=== PATIENT | female | born 1955 | race Caucasian/White ===

== ENCOUNTER → 2022-03-17 12:54 | Outpatient (CLI) | payer MEDICARE, SELFPAY ==
--- NOTE | 2022-03-17 13:00 | DI.RAD_ITS ---
Exam(s) XR THORACIC SPINE COMPLETE EXAM: XR THORACIC SPINE COMPLETE CLINICAL HISTORY: sturck by horse back pain. TECHNIQUE: 2D digital imaging was performed. COMPARISON: No exams were available for comparison FINDINGS: 3 views There is generalized osteopenia. There is mild loss of height of a lower thoracic vertebral body, ag e indeterminate. This is either T11 or T12. No other vertebral body height loss. There is advanced disc space narrowing at T11-T12, more so on t he right than left side and there is a mild scoliosis at and below this level. No osseous lesions. IMPRESSION: Lower thoracic vertebral findings as described above. If clinically indicated follow-up MRI can be p erformed. DATA REPOSITORY: RADIATION DOSE DELIVERED:
--- NOTE | 2022-03-17 13:00 | DI.RAD_ITS ---
Exam(s) XR LUMBAR SPINE COMPLETE EXAM: XR LUMBAR SPINE COMPLETE CLINICAL HISTORY: fall struck by horse, mid and lower back. TECHNIQUE: 2D digital imaging was performed. COMPARISON: No exams were available for comparison FINDINGS: Five views There is chronic degenerative scoliosis convex right. No evidence of acute fracture. Multilevel mil d degenerative listhesis ease related to facet arthropathy. There is multilevel disc space narrowing . Sacroiliac joints unremarkable. IMPRESSION: Chronic degenerative changes. No obvious acute fracture. DATA REPOSITORY: RADIATION DOSE DELIVERED:
--- NOTE | 2022-03-17 14:11 | DI.VRAD_ITS ---
PROCEDURE INFORMATION: Exam: XR Lumbosacral Spine Exam date and time: 03/17/2022 1:23 PM Age: 67 years old Clinical indication: Other: Lbp; Low back pain; Patient HX: Fall, struck by horse. TECHNIQUE: Imaging protocol: XR of the lumbosacral spine. Views: 4 or 5 views. COMPARISON: No relevant prior studies available. FINDINGS: Bones/joints: The bones are diffusely demineralized. This limits sensitivity for detection of acute nondisplaced fractures. No fractures are identified with certainty. Vertebral bodies maintain normal height. There is grade 1 retrolisthesis of L3 on L4 and grade 1 anterolisthesis of L4 on L5. There is multilevel loss of intervertebral disc height, degenerative endplate spurring and facet hypertrophy throughout the lumbar spine. There is a mild lumbar dextroscoliosis. Soft tissues: Unremarkable. IMPRESSION: No acute posttraumatic abnormality in the lumbar spine. Chronic changes as described above. Dictated and Authenticated by: Daisy Adkins MD. Ordering:JENNIFER Low MD
--- NOTE | 2022-03-17 14:13 | DI.VRAD_ITS ---
PROCEDURE INFORMATION: Exam: XR Thoracic Spine Exam date and time: 03/17/2022 1:23 PM Age: 67 years old Clinical indication: Pain in thoracic spine; Without myelpathy or radiculopathy TECHNIQUE: Imaging protocol: XR of the thoracic spine. Views: 3 views. COMPARISON: CR XR LUMBAR SPINE COMPLETE 03/17/2022 1:23 PM FINDINGS: Bones/joints: The bones are diffusely demineralized, which limits sensitivity for detection of acute nondisplaced fractures. There is mild loss of height of a lower thoracic vertebral body, likely T12, age-indeterminate. Other vertebral bodies maintain normal height. There is no spondylolisthesis. Thoracic kyphosis is maintained. Soft tissues: Paraspinal soft tissues are unremarkable. IMPRESSION: Osteopenia with age-indeterminate loss of height of the T12 vertebral body. This could be acute or chronic. Consider further evaluation with MRI as clinically warranted. Dictated and Authenticated by: Daisy Adkins MD. Ordering:JENNIFER Low MD
== END ==
PROVIDERS: PCP Physician Assistant Medical; Visit Provider Physician Assistant
DX: M85.88 Other specified disorders of bone density and structure, other site; M51.34 Other intervertebral disc degeneration, thoracic region; M47.816 Spondylosis without myelopathy or radiculopathy, lumbar region; M51.36 Other intervertebral disc degeneration, lumbar region
CPT/HCPCS: 72072; 72110

== ENCOUNTER → 2022-07-13 23:04 | Outpatient (CLI) | payer MEDICARE, SELFPAY ==
--- NOTE | 2022-07-13 13:47 | DI.RAD_ITS ---
Exam(s) XR CHEST 2V PA LATERAL EXAM: XR CHEST 2V PA LATERAL CLINICAL HISTORY: evaluate pneumonia - chronic cough R05.9 TECHNIQUE: COMPARISON: No exams were available for comparison FINDINGS: Heart is not enlarged. Lungs are predominantly clear with a few of probable small linear scars. No focal consolidation. No pleural effusion. IMPRESSION: No evidence of acute process. RADIATION DOSE DELIVERED: Total DLP
== END ==
PROVIDERS: PCP Physician Assistant Medical; Visit Provider Nurse Practitioner Family
DX: R05.9 Cough, unspecified (principal)
CPT/HCPCS: 71046

== ENCOUNTER 2022-11-29 13:35 | Outpatient (REF) | payer MEDICARE, SELFPAY ==
[2022-11-29 19:29] LABS: Influenza A PCR Negative (Negative); Influenza B PCR Negative (Negative); RSV PCR Negative (Negative)
[2022-11-29 20:15] LABS: COVID-19 PCR Positive (Negative); Source Nasopharynx
== END 2022-11-29 13:36 | disposition home or self-care (01) ==
LOC: LBN 13:35
PROVIDERS: PCP Student in an Organized Health Care Education/Training Program; Referring Provider Student in an Organized Health Care Education/Training Program; Visit Provider Student in an Organized Health Care Education/Training Program
DX: R05.9 Cough, unspecified (principal); R06.9 Unspecified abnormalities of breathing
CPT/HCPCS: 87637

== ENCOUNTER 2023-03-08 01:22 | Outpatient (CLI) | payer MEDICARE, SELFPAY ==
[2023-03-08 10:43] LABS: BUN 14 mg/dL (7-18); CREATININE 0.9 mg/dL (0.55-1.02); Calcium 8.8 mg/dL (8.5-10.1); Calculated LDL 144 mg/dL (<100); Chloride 106 mmol/L (98-107); Cholesterol 241 mg/dL (<200); Glucose 96 mg/dL (74-106); HDL Cholesterol 83 mg/dL (40-60); Potassium 4.2 mmol/L (3.5-5.1); Sodium 141 mmol/L (136-145); Triglyceride 72 mg/dL (<150)
== END 2023-03-08 01:23 | disposition home or self-care (01) ==
LOC: LBO 01:22
PROVIDERS: PCP Student in an Organized Health Care Education/Training Program; Referring Provider Student in an Organized Health Care Education/Training Program; Visit Provider Student in an Organized Health Care Education/Training Program
DX: R79.89 Other specified abnormal findings of blood chemistry (principal)
CPT/HCPCS: 36415; 80048; 80061

== ENCOUNTER 2023-03-25 05:05 | Outpatient (CLI) | payer MEDICARE, SELFPAY ==
[2023-03-25] MEDS: Methacholine 100 MG VIAL IH (14:14)
[2023-03-25] MEDS: Albuterol HFA 18 GM 200 PUFF INH IH (14:14)
[2023-03-25] MEDS: Inhaler, Assist Device 1 EACH MC (14:15)
--- NOTE | 2023-03-29 12:45 | PFT_ITS ---
Date of service: 03/25/23 Time of Service: 10:01 Pulmonary Function Test Result Indications: Chronic Cough Interpretation Spirometry: There is no airflow limitation. There was a 23% decrease in FEV1% with administ ration of 4mg/mL methacholine. Lung Volumes: Normal lung volumes. Diffusion Capacity: Normal diffusion. Airway Pressure: Normal airways resistance. Impression Normal baseline pulmonary function with a positive methacholine challenge test. Clinical Correlation therefore is recommended.
== END 2023-03-25 05:06 | disposition home or self-care (01) ==
LOC: RT 05:06
PROVIDERS: PCP Student in an Organized Health Care Education/Training Program; Visit Provider Physician Assistant Surgical
DX: R05.9 Cough, unspecified (principal)
CPT/HCPCS: 94060; 94070; 94726; 94729; 94010; J7674

== ENCOUNTER 2023-05-02 07:23 | Emergency (ER) | payer MEDICARE, SELFPAY ==
[2023-05-02] VITALS (19 sets, daily range): BP systolic 123–184; BP diastolic 89–109; PULSE 68–81; RESP 9–23; TEMP 36.4; O2SAT 93–100
--- NOTE | 2023-05-02 07:15 | RT.EKG_ITS ---
APPROVED REPORT Exam: Resting ECG Reason for Exam: generally unwell Patient Location: E HR:66 bpm ECG Measurements Heart Rate 66 AXIS FL 149 P 34 QRSd 87 QRS 29 QT 389 T 52 QTc 408 Conclusion Sinus rhythm...normal P axis, V-rate 60- 99 Narrow complex normal sinus rhythm at a rate of 66. Normal axis. Intervals within normal limits. N o T wave inversions. No ST segment abnormalities. No prior for comparison. No acute injury pattern .
--- NOTE | 2023-05-02 07:32 | ED.PROG_ITS ---
Date of service: 05/02/23 Time of Service: 07:32 Medical Decision Making This patient arrived at the end of my shift with chest pain that had resolved. She reported that she woke up at 3 AM from pain that she described as stabbing sharp and quickly resolving. She has not noticed any rash to her chest. She carranza s a history of hyperlipidemia but not diabetes nor hypertension. She does not smoke. There is no family history of premature coronary artery disease. She was quite well appearing. Her vitals are significant for hypertension but not tachycardic nor hypoxia. I ordered a 2 view chest x-ray troponins, CBC, comprehensive metabolic panel, his asked for a blue top to be drawn. Her ECG was nonischemic. Given her resolved pain her nonischemic ECG and her family history of thoracic aortic aneurysm will defer aspirin at this point in time. Discharge Plan Discharge Details Chief Complaint: Chest Pain Primary Care Provider: Catrachita Luz ED Provider: Provider,Temporary Home Meds and New Rx's Prescriptions: No Action lorazepam 0.5 mg tablet 0.5 mg PO DAILY MDD 1mg PRN (Reason: anxiety, panic episode) Qty: 20 2RF Rx Instructions: Continue, with 2nd tab prn heightened/severe panic episode guaifenesin 600 mg tablet extended release 12hr 600 mg PO Q12H PRN (Reason: congestion) Qty: 20 0RF levalbuterol tartrate 45 mcg/actuation HFA aerosol inhaler 2 inh inhalation Q6H Qty: 15 12RF budesonide-formoterol [Symbicort] 160-4.5 mcg/actuation HFA aerosol inhaler 2 puff inhalation BID Qty: 10.2 11RF cholecalciferol (vitamin D3) 25 mcg (1,000 unit) capsule 25 mcg PO DAILY Methyl-Guard Plus PO DAILY cannabidiol 100 mg/mL solution PO DAILY Rx Instructions: CBD Oral Oil acetaminophen 500 mg capsule 1,000 mg PO Q6H PRN ibuprofen 200 mg capsule 400 mg PO Q4H PRN latanoprost 0.005 % drops 1 drp ophthalmic (eye) DAILY gabapentin 100 mg capsule 300 mg PO QHS Qty: 90 1RF Rx Instructions: Trial with (1) capsule x 1 week, then may slowly increase/monitor.
[2023-05-02 07:50] LABS: Abs Immature Grans 0.02 10^3/uL (0.0-0.06); Absolute Basophil Count 0.04 10^3/uL (0.0-0.2); Absolute Eosinophil Count 0.09 10^3/uL (0.0-0.7); Absolute Lymphocyte Count 1.46 10^3/uL (1.2-3.4); Absolute Monocyte Count 0.37 10^3/uL (0.1-0.8); Absolute Neutrophil Count 3.64 10^3/uL (1.2-6.7); Basophils % 0.7; Eosinophils % 1.6; HCT 42.2 % (36.0-46.0); HGB 14.4 g/dL (11.2-15.7); Immature Grans % 0.4; MCH 30.3 pg (27.0-33.0); MCHC 34.1 % (32.0-36.0); MCV 89 fL (80-95); Monocytes % 6.6; Neutrophils % 64.7; Platelet Count 303 10^3/uL (130-400); RBC 4.75 10^6/uL (3.93-5.22); RDW-SD 39.7 fL; WBC 5.62 10^3/uL (4.4-10.8)
[2023-05-02 08:10] LABS: ALT 25 U/L (14-59); AST 22 U/L (15-37); Albumin 3.9 g/dL (3.4-5.0); Alkaline Phosphatase 69 U/L (46-116); Anion Gap 7.9 mmol/L (3-11); BUN 19 mg/dL (7-18); Bilirubin, Total 0.8 mg/dL (0.2-1.0); CO2 26.1 mmol/L (21.0-32.0); CREATININE 0.9 mg/dL (0.55-1.02); Calcium 9.1 mg/dL (8.5-10.1); Chloride 108 mmol/L (98-107); Glucose 99 mg/dL (74-106); Lipase 52 U/L (16-77); Potassium 3.8 mmol/L (3.5-5.1); Sodium 142 mmol/L (136-145); Troponin I < 50 ng/L (<or=60)
[2023-05-02 08:12] LABS: INR 1.1 (0.9-1.1); Prothrombin Time 11.1 sec (9.3-11.0)
--- NOTE | 2023-05-02 08:15 | DI.CT_ITS ---
Exam(s) CT THORAX CTA EXAM: CT THORAX CTA CLINICAL HISTORY: pleuritic left chest pain; fam hx aortic aneurysm. TECHNIQUE: Imaging Protocol: Axial CT angiography was performed with multi-slice acquisition and mu lti-planar and/or 3D reconstructions. CONTRAST MATERIAL: Intravenous: Omnipaque 350 contrast volume:100 mL COMPARISON: CR XR CHEST 2V PA LATERAL from 07/13/2022 FINDINGS: Tracheobronchial tree: Patent where visualized. Pulmonary parenchyma: There is poor inspiration with areas of atelectasis predominantly in the depend ent portions of the lungs. No focal consolidating infiltrates are seen. No architectural distortion . Pulmonary Arteries: No evidence of filling defect to suggest pulmonary emboli. Mediastinum and Kylee: No dominant adenopathy or fluid collection. The esophagus is unremarkable. Visualized thyroid gland: Unremarkable. Pleura: No effusion or pneumothorax. Heart: The heart is not dilated. Mild coronary artery calcification. No pericardial effusion. Aorta: Thoracic aorta non-dilated. No evidence of dissection. Mild atherosclerosis. Upper abdomen: There is an incidental 7 mm cyst in the liver. No follow-up is recommended. Soft tissues: Unremarkable. Bones: Within normal limits for the patient's age.There is an old T11 compression deformity. IMPRESSION: 1. No evidence of pulmonary embolism, thoracic aortic dissection or aneurysm. 2. Findings were discussed with the emergency department at 9:20 a.m. on 05/02/2023. RADIATION DOSE DELIVERED: Total DLP Total DLP DATA REPOSITORY: All CT scans at this facility are submitted to the National Radiology Data Registry (NRDR) Dose Index Registry (DIR) with the [employer] (ACR). RADIATION OPTIMIZATION: All CT scans at this facility use at least one of these dose optimization te chniques: automated exposure control; mA and/or kV adjustment per patient size (includes targeted exa ms where dose is matched to clinical indication); or iterative reconstruction.
--- NOTE | 2023-05-02 08:17 | W.ED.GENAD ---
Discharge Plan Disposition Patient Disposition: Home Condition: Improving Discharge Details Chief Complaint: Chest Pain Clinical Impression: Chest pain Primary Care Provider: Catrachita Luz ED Provider: Justin Fonseca Home Meds and New Rx's Prescriptions: No Action lorazepam 0.5 mg tablet 0.5 mg PO DAILY MDD 1mg PRN (Reason: anxiety, panic episode) Qty: 20 2RF Rx Instructions: Continue, with 2nd tab prn heightened/severe panic episode guaifenesin 600 mg tablet extended release 12hr 600 mg PO Q12H PRN (Reason: congestion) Qty: 20 0RF levalbuterol tartrate 45 mcg/actuation HFA aerosol inhaler 2 inh inhalation Q6H Qty: 15 12RF budesonide-formoterol [Symbicort] 160-4.5 mcg/actuation HFA aerosol inhaler 2 puff inhalation BID Qty: 10.2 11RF cholecalciferol (vitamin D3) 25 mcg (1,000 unit) capsule 25 mcg PO DAILY Methyl-Guard Plus PO DAILY cannabidiol 100 mg/mL solution PO DAILY Rx Instructions: CBD Oral Oil acetaminophen 500 mg capsule 1,000 mg PO Q6H PRN ibuprofen 200 mg capsule 400 mg PO Q4H PRN latanoprost 0.005 % drops 1 drp ophthalmic (eye) DAILY gabapentin 100 mg capsule 300 mg PO QHS Qty: 90 1RF Rx Instructions: Trial with (1) capsule x 1 week, then may slowly increase/monitor. Discharge Instructions Instructions: Chest Pain (ED) Additional Instructions: Please follow-up closely with your primary care physician. Please return to the emergency department for any worsening symptoms Medical Decision Making 68-year-old female history of hyperlipidemia, asthma presents with brief sharp left-sided chest discomfort that woke her from sleep around 3 or 4AM this morning, nonradiating, no associated diaphoresis nausea vomiting or shortness of breath; patient endorses resolved symptomatology and is currently resting comfortably. No history of coronary disease or thromboembolic disease. Patient does have a family history of thoracic aortic aneurysm. No recent travel no recent hospitalization. Has had intermittent leg cramping bilaterally without edema. Patient afebrile nontoxic normal heart rate and respirations as well as saturation on room air. Noted to be hypertense on arrival. EKG normal sinus rhythm nonischemic. Lungs clear bilaterally, equal pulses bilateral radial pulses, warm well perfused extremities, no peripheral edema noted. Given brief sharp nature of discomfort in low risk heart score and low risk Wells patient consider costochondritis versus pleurisy versus lower suspicion for pneumothorax versus less likely pneumonia given afebrile state no cough no systemic signs of infection versus must consider atypical ACS versus PE versus aortic pathology given family history and hypertension. Will obtain basic labs, serial troponins, ekg, and given family history of aortic pathology, presentation of chest pain sharp in nature with hypertension will obtain CT chest to assess both aortic contour and PE. Have held aspirin at this time given nature of discomfort history and differential diagnosis, will consider anti-inflammatory post CT imaging. Disposition pending results imaging and reassessment 10: 37 patient resting comfortably asymptomatic no acute distress. First set of labs unremarkable, normal troponin, CT chest negative for PE or aortic pathology. Have added Toradol and GI cocktail to treat potential costochondritis pleurisy and/or GERD/reflux. Pending stable examination and repeat troponin will likely discharge home with close follow-up. 12: 20 patient resting comfortably asymptomatic. 2 troponin negative. Hemodynamically stable. Patient to follow with primary care physician. Home care instructions and return precautions given HPI General Date/Time Provider Initiated Documentation: 05/02/23 07:32. HPI Narrative: 68-year-old female history of asthma, hyperlipidemia presents with acute onset left-sided sharp chest pain brief in nature that awoke her from sleep around 4 AM this morning no associated diaphoresis nausea vomiting or shortness of breath. No history of thromboembolic disease or cardiovascular disease. Patient does have a family history of thoracic aortic aneurysm. No recent travel no recent hospitalization. Patient has had some leg cramping bilaterally without swelling. Currently asymptomatic Related Data Home Medications Medication Instructions Recorded Confirmed Methyl-Guard Plus cap PO DAILY 10/19/22 04/12/23 acetaminophen 500 mg capsule 1,000 mg PO Q6H PRN 10/19/22 05/02/23 cannabidiol 100 mg/mL oral solution PO DAILY 10/19/22 04/12/23 cholecalciferol (vitamin D3) 25 25 mcg PO DAILY 10/19/22 05/02/23 mcg (1,000 unit) capsule ibuprofen 200 mg capsule 400 mg PO Q4H PRN 10/19/22 05/02/23 latanoprost 0.005 % eye drops 1 drp ophthalmic (eye) DAILY 10/19/22 05/02/23 guaifenesin 600 mg tablet, 600 mg PO Q12H PRN congestion #20 02/05/23 05/02/23 extended release 12 hr tabs gabapentin 100 mg capsule 300 mg PO QHS #90 caps 03/28/23 05/02/23 lorazepam 0.5 mg tablet 0.5 mg PO DAILY PRN anxiety, panic 04/10/23 05/02/23 episode #20 tabs levalbuterol tartrate 45 2 inh inhalation Q6H #15 grams 04/12/23 05/02/23 mcg/actuation aerosol inhaler budesonide-formoterol HFA 160 2 puff inhalation BID #10.2 grams 04/15/23 05/02/23 mcg-4.5 mcg/actuation aerosol inhaler (Symbicort) Previous Rx's Medication Instructions Recorded guaifenesin 600 mg tablet, 600 mg PO Q12H PRN congestion #20 02/05/23 extended release 12 hr tabs gabapentin 100 mg capsule 300 mg PO QHS #90 caps 03/28/23 lorazepam 0.5 mg tablet 0.5 mg PO DAILY PRN anxiety, panic 04/10/23 episode #20 tabs levalbuterol tartrate 45 2 inh inhalation Q6H #15 grams 04/12/23 mcg/actuation aerosol inhaler budesonide-formoterol HFA 160 2 puff inhalation BID #10.2 grams 04/15/23 mcg-4.5 mcg/actuation aerosol inhaler (Symbicort) Allergies Allergy/AdvReac Type Severity Reaction Status Date / Time acetaminophen [From Percocet] Allergy Intermediate Nausea Verified 05/02/23 07:28 oxycodone [From Percocet] Allergy Intermediate Nausea Verified 05/02/23 07:28 General Stated Complaint: Chest Pain YOSSI: 3 Review of Systems Narrative: Review of Systems Constitutional: negative Eyes: negative ENT: negative Cardiovascular: Chest pain Respiratory: negative Gastrointestinal: negative : negative Musculoskeletal: negative Skin: negative Neurologic: negative Psych: negative PFSH All Active Problems (Updated 05/02/23 @ 12:21 by Justin Fonseca MD) Chest pain (Acute) Anxiety (Chronic) Asthma (Chronic) Bronchitis (Acute) Smoking hx (Acute) Spondylosis without myelopathy or radiculopathy, lumbar region (Acute ~10/22/22) Thoracic kyphosis (Acute 07/27/22) MRI [facility] Neural foraminal stenosis of lumbar spine (Acute 07/27/22) MRI [facility] Lordosis of lumbar region (Acute 07/27/22) MRI [facility] Compression fracture of T11 vertebra (Acute 07/27/22) MRI [facility] Scoliosis of lumbar spine (Acute 07/27/22) MRI [facility] Cough (Acute) lingering x months .. 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 Surgical History (Updated 09/14/22 @ 09:40 by Carie Peterson) H/O arthroscopic knee surgery History of appendectomy History of delivery (10/14/83) History of hysterectomy (10/14/07) History of laryngoscopy Family History (Updated 09/14/22 @ 08:41 by Carie Peterson) Son Asthma Maternal Grandmother Diabetes Father Stroke Mother Thoracic aneurysm, ruptured Social History (Updated 09/14/22 @ 08:34 by Carie Peterson) Smoking/Tobacco Use Status: Former Tobacco Use tobacco type: cigarettes Tobacco: How many years used: 10 Quit status: quit date established Smoking risk assessment performed?: Yes Alcohol Intake: current Alcohol Intake frequency: 0-2 drinks per day Drug use: Occasionally Substance use type: marijuana Adopted: No Caregiver/Support person: No Foster care: No Household members: spouse Housing: house Number of Children: 2 number of grandchildren: 2 Communication Needs: None Education Level: college Details: bachelor's degree Do you need help understanding health information?: Rarely current occupation: Retired Senior Quality Control Technician Pets and animals: Yes Pets and animals: horse(s) and other Details: mini donkeys Sexually active: Yes Do you think of yourself as: straight/heterosexual Current gender identity: female What is your relationship status?: How often do you talk on the phone with friends or family?: once per week How often do you get together with friends or relatives?: once per week Do you belong to any clubs or organized social groups?: yes Panel score (0-1 are the most socially isolated patients): 2 Leilani/Hoahaoism: Gnosticism Special leilani needs: No Seatbelt use: always Helmet use: Yes Helmet use: always Drive intox or ride w/intox driver messenger: No Do you feel safe at home: Yes Do you feel safe in your relationship?: Yes Exam Narrative Exam Narrative: Physical Examination General: alert, awake, cooperative, resting comfortably, no acute distress HEENT: normocephalic, atraumatic; PERRL, EOM intact, conjunctiva normal; no nasal discharge; moist mucous membranes, oral and pharyngeal mucosa normal, tolerating secretions Neck: supple, trachea midline; full ROM Chest: normal to inspection Respiratory: normal respiratory effort, speaking in full sentences, clear to auscultation, no wheezing, rales or rhonchi Cardiac: regular rate, regular rhythm, S1S2 intact, no murmurs rubs or gallops GI: abdomen soft, non-tender, non-distended; no palpable mass or hepatosplenomegaly Skin: no lesions, rashes or trauma appreciated Neuro: AAOx3, normal speech, moving all extremities Extremities: No peripheral edema Psych: Appropriate mood and affect Course Vital Signs Vital signs: Vital Signs Temperature 36.4 C L 05/02/23 07:21 Pulse 68 05/02/23 07:21 Respiratory Rate 19 05/02/23 07:21 Blood Pressure 184/89 H 05/02/23 07:21 Pulse Oximetry 100 05/02/23 07:21 Temperature 36.4 C L 05/02/23 07:21 Temperature Source Oral 05/02/23 07:21 Pulse 68 05/02/23 07:21 Respiratory Rate 23 05/02/23 07:30 Respiratory Effort Normal 05/02/23 07:30 Respiratory Depth Normal 05/02/23 07:30 Respiratory Pattern Normal 05/02/23 07:30 Blood Pressure 184/89 H 05/02/23 07:21 Blood Pressure Position Supine 05/02/23 07:21 Pulse Oximetry 100 05/02/23 07:21 Oxygen Delivery Method Room Air 05/02/23 07:21 Oxygen Flow Rate 0 05/02/23 07:21 Pain Level 0 05/02/23 07:21 Lab/Test Results Lab/Test Results: Laboratory Tests Range/Units 05/02/23 05/02/23 05/02/23 07:37 07:37 07:37 WBC (4.4-10.8) 10^3/uL 5.62 RBC (3.93-5.22) 10^6/uL 4.75 Hgb (11.2-15.7) g/dL 14.4 Hct (36.0-46.0) % 42.2 MCV (80-95) fL 89 MCH (27.0-33.0) pg 30.3 MCHC (32.0-36.0) % 34.1 RDW (11.7-14.6) % 12.0 Plt Count (130-400) 10^3/uL 303 MPV (8.0-11.0) fL 9.0 Immature Gran % 0.4 Neutrophils % 64.7 Lymphocytes % 26.0 Monocytes % 6.6 Eosinophils % 1.6 Basophils % 0.7 Nucleated RBC % (0.0-0.3) % 0.0 Absolute Neutrophils (1.2-6.7) 10^3/uL 3.64 Absolute Lymphocytes (1.2-3.4) 10^3/uL 1.46 Absolute Monocytes (0.1-0.8) 10^3/uL 0.37 Absolute Eosinophils (0.0-0.7) 10^3/uL 0.09 Absolute Basophils (0.0-0.2) 10^3/uL 0.04 PT (9.3-11.0) sec 11.1 H INR (0.9-1.1) 1.1 Sodium (136-145) mmol/L 142 Potassium (3.5-5.1) mmol/L 3.8 Chloride (98-107) mmol/L 108 H Carbon Dioxide (21.0-32.0) mmol/L 26.1 Anion Gap (3-11) mmol/L 7.9 BUN (7-18) mg/dL 19 H Creatinine (0.55-1.02) mg/dL 0.9 Est GFR (CKD-EPI 2020) (mL/min/1.73m2) 69.20 Glucose (74-106) mg/dL 99 Calcium (8.5-10.1) mg/dL 9.1 Total Bilirubin (0.2-1.0) mg/dL 0.8 AST (15-37) U/L 22 ALT (14-59) U/L 25 Alkaline Phosphatase (46-116) U/L 69 Troponin I (<or=60) ng/L < 50 Total Protein (6.4-8.2) g/dL 7.0 Albumin (3.4-5.0) g/dL 3.9 Lipase (16-77) U/L 52
[2023-05-02] MEDS: Omnipaque 350 MG/ML 500 ML BTL-Imaging package 100 ML IJ (08:40)
[2023-05-02] MEDS: Normal Saline - Diluent 50 ML VIAL IJ (08:41)
[2023-05-02] MEDS: Ketorolac 15 MG/ML VIAL IVP (09:46)
[2023-05-02] MEDS: Famotidine 20 MG/2 ML VIAL IVP (09:46)
[2023-05-02 11:53] LABS: Troponin I < 50 ng/L (<or=60)
== END 2023-05-02 12:32 | disposition home or self-care (01) ==
PROVIDERS: Emergency Medicine; Emergency Provider Emergency Medicine; PCP Student in an Organized Health Care Education/Training Program
DX: R07.9 Chest pain, unspecified (principal); R03.0 Elevated blood-pressure reading, without diagnosis of hypertension; J45.909 Unspecified asthma, uncomplicated; E78.5 Hyperlipidemia, unspecified; Z87.891 Personal history of nicotine dependence
CPT/HCPCS: 36415; 71275; 80053; 83690; 93005; 96374; 99285; 84484; 85025; 85610; 93010; 99283; J1885

== ENCOUNTER → 2023-05-21 01:51 | Outpatient (CLI) | payer MEDICARE, SELFPAY ==
--- NOTE | 2023-05-21 05:30 | ETT_ITS ---
APPROVED REPORT Exam: Exercise Treadmill Patient Location: Out-Patient Room/Bed: Stress Nurse: Amita Potter RN Ordering Provider:OSITO DOLL, Contact Number: [phone] BMI: 22.86 Baseline Rhythm: Sinus Rhythm Indications: Chest pain, neg troponin Medical History Medical History: Anxiety, chest pain, smoking history, PVC's, GERD, migraines, ET, COVID, family hx o f thoracic aortic aneurysm, low back pain, homozygous for methylenetetrahydrofolate reductase gene mu tation Cardiac Medications: Lorazepam, levalbuterol tartrate, guaifenesin, gabapentin, Vit D3, budesonide-fo rmoterol HFA inhaler Allergies: Tylenol, oxycodone Cardiac Risk Factors: Family hx, prediabetes, HLD, former smoker, asthma Previous Cardiac Procedures: None Pretest Chest Pain Characteristics: None Exercise History: Sedentary Physical Disabilities: None Lung Sounds: Clear to auscultation, Clear to auscultation Heart Sounds: Regular Stress Test Details Test: Exercise stress testing was performed using a Kenton protocol. Rest Stress HR Resting HR Supine: 71 bpm Max Heart Rate (APMHR): 151 bpm Resting HR Standin bpm Target HR (85% APMHR): 128 bpm Max HR Achieved: 132 bpm % of APMHR: 87 Recovery HR: 82 bpm HR response to stress: Normal HR response to stress BP Resting BP Supine: 162/90 mmHg Resting BP Standin/84 mmHg Max BP: 174/80 mmHg Recovery BP: 130/80 mmHg BP response to stress: Normal blood pressure response to stress. ECG Resting ECG: Sinus Rhythm Ectopy: None Stress ECG: Sinus Tachycardia ST Change: No significant ST segment changes noted Arrhythmia: None Recovery ECG: Sinus Rhythm Recovery ST Change: No significant ST segment changes noted Recovery Arrhythmia: None Clinical Reason for Termination: Target HR Achieved, Fatigue Stress Symptoms: None Exercise duration: 06 min43 sec Highest Stage Reached: Stage 3: 3.4 mph at 14% grade. Exercise capacity: 8.14 METs Angina Score: None Avendaño Treadmill Score: 6.6 Rate Pressure Product: [id number] Stress ECG Conclusion 1. The resting electrocardiogram was within normal limits 2. The patient exercised on the Kenton protocol and completed a workload of 8.14 METS 3. Normal heart rate and blood pressure response to exercise. The patient achieved 87% of predicted heart rate for age 4. There was no electrocardiographic evidence of myocardial ischemia 5. There were no significant dysrhythmias Avendaño Treadmill Score is 6.6 which is Low risk. Stress Test Summary STAGE Time (mins) Speed (mph) Grade (%) HR BP SpO2 SYMPTOMS METS Supine 71 162/90 97 Standing 66 150/84 1 3 1.7 10 104 152/80 4.5 2 6 2.5 12 124 7 3 9 3.4 14 132 10 1 min recovery 106 174/80 3 min recovery 83 154/84 6 min recovery 82 130/86
== END ==
PROVIDERS: PCP Student in an Organized Health Care Education/Training Program; Visit Provider Student in an Organized Health Care Education/Training Program
DX: R07.9 Chest pain, unspecified (principal)
CPT/HCPCS: 93016; 93018; 93017

== ENCOUNTER → 2023-06-25 01:44 | Outpatient (CLI) | payer MEDICARE, SELFPAY ==
--- NOTE | 2023-06-25 09:26 | DI.MAMMO_ITS ---
Exam(s) MAMMO SCREENING EXAM: MAMMO SCREENING CLINICAL HISTORY: screening,z12.39 TECHNIQUE: Mammograms were interpreted according to the usual protocol including computer analysis w BI[employer]URE[employer] CAD system, tomosynthesis and C-view imaging. COMPARISON: 2017 through 2021 from [facility]. FINDINGS: The breasts are composed of heterogeneously dense fibroglandular densities, Breast Density category C . No suspicious masses or suspicious microcalcifications are seen. No skin thickening or abnormal axillary lymph nodes are seen. There has been no significant change from prior exams. IMPRESSION: BI-RADS Category 1, Negative mammogram. Yearly screening mammography is recommended. Breast Density Category C, heterogeneously Dense. The mammogram demonstrates the patient's breast tissue is dense. Dense breast tissue is very common a nd is not abnormal but dense breast tissue can make it harder to find cancer on a mammogram. Also, de nse breast tissue may increase breast cancer risk. This information about the result of the mammogram report was provided to the patient to raise their awareness. Use this report when you speak with the patient about their risks for breast cancer, which includes their family history. At that time, you may recommend additional screening tests (Ultrasound or MRI) as they might be useful based on their r isk. A negative radiographic report should not delay biopsy if a dominant or clinically suspicious mass is present. Up to ten percent of cancers are not identified on mammography. A negative report may reinforce clinical impression. Adenosis and dense breasts may obscure an underlying neoplasm. False positive reports average 6 to 10%.
== END ==
PROVIDERS: PCP Student in an Organized Health Care Education/Training Program; Visit Provider Student in an Organized Health Care Education/Training Program
DX: Z12.31 Encounter for screening mammogram for malignant neoplasm of breast (principal)
CPT/HCPCS: 77063; 77067

== ENCOUNTER → 2023-07-16 00:37 | Outpatient (CLI) | payer MEDICARE, SELFPAY ==
--- NOTE | 2023-07-16 07:00 | DI.US_ITS ---
APPROVED REPORT EXAM: Comprehensive 2D, Doppler, and color-flow Echocardiogram Patient Location: Out-Patient Machine Wiper: Stevenson Reich RDCS (AE) Indications: evaluate heart function, ventricular premature beats, smoker, h/o thoracic aortic aneury sm Other Information Study Quality: Good Conclusion Borderline concentric left ventricular hypertrophy. Ejection fraction is 60 to 65% with normal wall motion Normal right ventricular size and systolic function Both atria are normal in size Trileaflet aortic valve with trace regurgitation Normal mitral valve with mild regurgitation Normal tricuspid valve with mild regurgitation. Estimated right ventricular systolic pressure is 23 mmHg Wall motion Left Ventricle The left ventricle is normal size. The left ventricular systolic function is normal. The left ventric ular ejection fraction is within the normal range. Borderline concentric left ventricular hypertrophy . There is normal LV segmental wall motion. There is no ventricular septal defect visualized. LVEF is 55-60%. Right Ventricle The right ventricle is normal size. The right ventricular systolic function is normal. Atria The left atrium size is normal. The right atrium size is normal. The interatrial septum is intact wit h no evidence for an atrial septal defect. Aortic Valve Aortic valve is trileaflet. There is no aortic valvular stenosis. Trace aortic regurgitation. Mitral Valve The mitral valve is normal in structure. No evidence of mitral valve stenosis. Mild mitral regurgitat ion. Tricuspid Valve The tricuspid valve is normal in structure. There is no tricuspid valve stenosis. Mild tricuspid regu rgitation. Pulmonic Valve The pulmonary valve is normal in structure. There is no pulmonic valvular stenosis. There is no pulmo angely valvular regurgitation. Great Vessels The aortic root is normal in size. Ascending aorta is not well visualized. Aortic arch is normal in c aliber. IVC is normal in size and collapses >50% with inspiration. Pericardium There is no pericardial effusion. 2D Dimensions IVSD d PLAX 0.92 cm F: 0.6-1.0 Ao Root d 3.10 cm F: 2.7 - 3.3 LVPW d PLAX 0.90 cm F: 0.6 - 1.0 LVID d PLAX 3.39 cm F: 3.8 - 5.2 LVDs 2.44 cm F: 2.2 - 3.5 LV EF Teichholz 55.2 % FS 27.92 % LV EDV (Teich) 47.0 mL LV ESV (Teich) 21.1 mL Stroke Vol Index (Teich) 16.54 M-Mode TAPSE 1.64 cm (M/F) >1.7 Auto EF LV EDV A4C 83.8 mL LV EDV A2C 77.5 mL LV EDV BP 78.9 mL LV ESV A4C 37.8 mL LV ESV A2C 32.1 mL LV ESV BP 34.8 mL LVEF(%) A4C 54.9 % LVEF(%) A2C 58.6 % LVEF(%) BP 55.9 % LV SV A4C 46.0 ml LV SV A2C 45.4 ml LV SV BP 44.1 ml LV CO A4C 3.3 L/min LV CO A2C 3.3 L/min LV CO BP 3.3 L/min HR A4C 72.58 BPM HR A2C 72.73 BPM LV EDV Index (BP) LA Volume LA Length A4C 2.7 cm LA Length A2C LA Area A4C s 6.83 cm2 LA Area A2C s LA Vol A4C A-L 14.42 mL LA Vol A2C A-L LA Vol Biplane A-L LA Vol A4C MOD 12.4 mL LA Vol A2C MOD LA Vol BP MOD RA Volume RA Area A4C 5.5 cm2 RA ESV A4C (A-L) 8.4mL RA Vol/BSA A4C A-L RA Length A4C 3.1 cm RA ESV A4C (MOD) 8.1mL LV Diastology MV E Vmax 0.57 (0.4-1.3 m/s) MV A Vmax 0.70 (0.4-1.3 m/s) E/A Ratio 0.8 Aortic Valve AoV Vmax 1.09 m/s LVOT Vmax 0.76 m/s AoV Peak Grad 4.7 mmHg LVOT Peak Grad 2.3 mmHg AoV Area (Vmax) 2.24 cm2 LVOT VTI 0.182 m AoV VTI 0.297 m LVOT Mean Grad 1.2 mmHg AoV Mean Bakari. 0.82 m/s LVOT SV 58.40 mL AoV Mean Grad 2.9 mmHg LVOT Diam s 2.00 cm AoV Area (VTI) 1.97 cm2 Velocity Ratio 0.70 Mitral Valve MV DT 200 (160-240 msec) Pulmonary Valve PV Vmax 0.95 (0.5-1.5 m/s) RVOT Vmax 0.63 m/s PV Peak Grad 3.6 mmHg RVOT Peak Gr. 1.6 mmHg PV Mean Bakari 0.55 m/s RVOT VTI 0.133 m PV Mean Grad 1.4 mmHg RVOT Mean Gr. 0.7 mmHg Tricuspid Valve RA Pressure 3.00 mmHg TR Vmax 2.24 m/s TR Peak Grad 20.0 mmHg RVSP (TR) 23.1 mmHg
== END ==
PROVIDERS: PCP Student in an Organized Health Care Education/Training Program; Visit Provider Student in an Organized Health Care Education/Training Program
DX: I49.3 Ventricular premature depolarization (principal); R89.9 Unspecified abnormal finding in specimens from other organs, systems and tissues; Z82.49 Family history of ischemic heart disease and other diseases of the circulatory system; Z87.891 Personal history of nicotine dependence
CPT/HCPCS: 93306

== ENCOUNTER → 2023-07-17 02:59 | Outpatient (CLI) | payer MEDICARE, SELFPAY ==
--- NOTE | 2023-07-17 07:45 | DI.US_ITS ---
Exam(s) US AAA SCREENING EXAM: US AAA SCREENING CLINICAL HISTORY: eval for AAA,FAMILY H/O THORACIC AORTA ANEURSYM,SMOKER,Z82,49 COMPARISON: Chest CT scan 05/02/2023 was reviewed. FINDINGS: There is no evidence of abdominal aortic aneurysm. Maximum diameter of the abdominal aorta is 2.2 cm proximally and the aorta tapers normally distally. Visualized common iliac arteries exhibit upper normal diameters. IMPRESSION: No evidence of abdominal aortic aneurysm nor aneurysmal dilatation of the visualized common iliac art eries. DATA REPOSITORY:
--- NOTE | 2023-07-17 07:45 | DI.US_ITS ---
Exam(s) US CAROTID EXAM: US CAROTID CLINICAL HISTORY: evaluate for carotid dz,R20.0,ANESTHESIA OF SKIN,NUMBNESS FOOT. TECHNIQUE: Ultrasound carotids performed using grayscale, color-flow, and spectral Doppler imaging. COMPARISON: US US ECHOCARDIOGRAM from 07/16/2023 FINDINGS: CAROTID ARTERIES: Right common carotid artery appears unremarkable. There is mild plaque evident at the carotid bulb a nd proximal right ICA but without elevated velocities indicating mount of stenosis less than 50 perce nt. Left common carotid artery appears unremarkable. There is minimal plaque at the level the carotid bu lb and proximal left ICA. No elevated velocities. VERTEBRAL ARTERIES: Antegrade flow is demonstrated in both vertebral arteries in the neck. Measurements: R Bulb: 47.7cm/s PS / 16.7cm/s ED R CCA: 67.1cm/s PS / 25.7cm/s ED R ECA: 79.7cm/s PS / 17.9cm/s ED R ICA Prox: 47.2cm/s PS / 17.8cm/s ED R ICA Mid: 80.8cm/s PS / 32.8cm/s ED R ICA Distal: 80.8cm/s PS /40.3cm/s ED R Vert: 49.2cm/s PS / 12.5cm/s ED R SVR: 1.2 R DVR: 1.3 L Bulb: 60.6cm/s PS / 15cm/s ED L CCA: 66.9cm/s PS / 22.6cm/s ED L ECA: 74.5cm/s PS / 13.8cm/s ED L ICA Prox: 54.3cm/s PS / 21.4cm/s ED L ICA Mid: 69.4cm/s PS / 31.5cm/s ED L ICA Distal: 80cm/s PS / 37.4cm/s ED L Vert: 47.5cm/s PS / 21.2cm/s ED L SVR: 1.2 L DVR: 1.7 IMPRESSION: There is mild plaque seen on the right side at the carotid bulb proximal ICA. A lesser amount of jeffery que at similar location left-side. No elevated velocities. This implies that the amount of stenosis is less than 50 percent. Visually I estate amount of stenosis at approximately 10-15 percent on the right side and less on the left side. No evidence for hemodynamically significant carotid stenosis. Both vertebral arteries are demonstrated to be patent in the neck. Criteria for Carotid Stenosis: Normal: ICA PSV <125 cm/s no plaque or intimal thickening is visible. <50% stenosis: ICA PSV <125 cm/s and plaque or intimal thickening is visible. 50-69% stenosis: ICA PSV is 125-250 cm/s and plaque is visible. >70% stenosis to near occlusion: ICA PSV >250 cm/s with visible plaque and luminal narrowing. DATA REPOSITORY:
--- NOTE | 2023-07-17 07:45 | DI.US_ITS ---
Exam(s) US HERNIA EXAM: US HERNIA CLINICAL HISTORY: ? hernia; evaluate abd wall weakness,K46.9,K43.9. TECHNIQUE: Ultrasound was performed using standard protocol. COMPARISON: CT CT THORAX CTA from 05/02/2023 FINDINGS: Dedicated ultrasound examination of the area of clinical concern in the upper anterior abdominal wall was performed. Submitted images reveal no evidence of abdominal wall hernia at this level and no evidence of abnorma l mass nor fluid collection. IMPRESSION: No significant focal ultrasound findings in the anterior abdominal wall in the area of clinical sonja rn. No hernia was able to be demonstrated. DATA REPOSITORY:
== END ==
PROVIDERS: PCP Student in an Organized Health Care Education/Training Program; Visit Provider Student in an Organized Health Care Education/Training Program
DX: Z13.6 Encounter for screening for cardiovascular disorders (principal); Z82.49 Family history of ischemic heart disease and other diseases of the circulatory system; Z87.891 Personal history of nicotine dependence; R89.9 Unspecified abnormal finding in specimens from other organs, systems and tissues
CPT/HCPCS: 76706; 76857; 93880

== ENCOUNTER → 2023-10-17 10:35 | Outpatient (BNVA) | payer MEDICARE, SELFPAY | PROVIDERS: PCP Student in an Organized Health Care Education/Training Program; Referring Provider Student in an Organized Health Care Education/Training Program; Visit Provider Student in an Organized Health Care Education/Training Program | DX: J45.909 Unspecified asthma, uncomplicated (principal); K21.9 Gastro-esophageal reflux disease without esophagitis | CPT/HCPCS: 99214 ==

== ENCOUNTER → 2023-10-23 09:36 | Outpatient (BNVA) | payer MEDICARE, SELFPAY | PROVIDERS: PCP Student in an Organized Health Care Education/Training Program; Referring Provider Student in an Organized Health Care Education/Training Program; Visit Provider Surgery | DX: R10.9 Unspecified abdominal pain (principal) | CPT/HCPCS: 99213 ==

== ENCOUNTER → 2023-11-12 01:38 | Outpatient (CLI) | payer MEDICARE, SELFPAY ==
[2023-11-12 09:57] LABS: CREATININE 0.9 mg/dL (0.55-1.02)
[2023-11-12] MEDS: Omnipaque 350 MG/ML 100 ML BTL IJ (10:15)
[2023-11-12] MEDS: Normal Saline - Diluent 50 ML VIAL IJ (10:16)
--- NOTE | 2023-11-12 10:30 | DI.CT_ITS ---
Exam(s) CT CHEST/ABD W EXAM: CT CHEST/ABD W CLINICAL HISTORY: ? diaphragmatic hernia,xiphodynia,r07.89. TECHNIQUE: Imaging Protocol: Axial computed tomography images with coronal and sagittal reformatted images were created and reviewed CONTRAST MATERIAL: Intravenous: Omnipaque 350 Contrast volume:100 ml Oral: None COMPARISON: CR XR CHEST 2V PA LATERAL from 07/13/[address] THORAX CTA from 05/02/2023 FINDINGS: CHEST: LUNGS: There is mild platelike atelectasis in both lung bases. There are no large areas of confluent infiltrate and there are no pleural effusions.. However, there are few small nodular infiltrates in the left upper lobe. One of these measures 4 mm (series 4/image 17). Another subtle nodular infilt rate measuring 5 mm is located anteriorly in the sub apical aspect of the left upper lobe, unchanged from the previous study. No nodular infiltrate seen in the opposite-right lung. MEDIASTINUM: There is no hilar nor mediastinal adenopathy. No subcarinal adenopathy. No axillary nor supraclavicular adenopathy evident. Visualized thyroid unremarkable CARDIAC: Heart size is normal. There is no pericardial effusion.Caliber of the thoracic aorta is wit hin normal limits. OSSEOUS: Mild compression fracture of T11 appears unchanged. No new fractures nor new osseous lesion s.. ABDOMEN: There is no ascites. LIVER: There is a subcapsular benign-appearing cyst in the right hepatic lobe measuring 6 mm, unchang ed from 05/02/2023. Also in the right hepatic lobe is another hypodensity measuring 7 mm, more evide nt than previous but realizing the previous study was a lung arterial phase study. This finding has benign appearance. Suspect that it is a benign hemangioma (series 4/image 59). There is another 2 m illimeter benign cyst more superiorly in the right hepatic lobe (series 4/image 50). There are no di lated intrahepatic ducts. GALLBLADDER/BILIARY: No obvious gallbladder pathology. CBD is not dilated. PANCREAS: No evidence of pancreatic mass nor dilatation of the pancreatic duct. SPLEEN: Spleen size is normal. There is a benign cyst anteriorly in the spleen measuring 7 x 6 mm. Splenic and portal veins are patent. ADRENALS: There are no significant adrenal masses. KIDNEYS: No calculi nor hydronephrosis. No solid renal masses. There is a benign cyst in the right ki dney measuring 3.4 by 2.8 cm. Does not require further workup. ABDOMINAL AORTA: Visualized abdominal aorta is not enlarged. Please note that the pelvis was not sca nned. LYMPH NODES: There is no retroperitoneal nor paraaortic adenopathy. ABDOMINAL WALL: No evidence of significant anterior abdominal wall hernia in the field of view. GI: There is no evidence of bowel obstruction. OSSEOUS: Scoliosis noted. No fractures nor significant osseous lesions evident. Stable T11 compression fracture. IMPRESSION: 1. There few small sub cm nodular infiltrates in the left upper lobe as described above. Recommend f ollow-up CT scan in 6 months. 2. Benign-appearing findings in the liver, spleen, and kidneys, as described individually above. 3. Scoliosis and stable appearing compression fracture of T11 4. Pelvis was not scanned. RADIATION DOSE DELIVERED: 466.85mGy.cm Total DLP DATA REPOSITORY: All CT scans at this facility are submitted to the National Radiology Data Registry (NRDR) Dose Index Registry (DIR) with the [employer] (ACR). RADIATION OPTIMIZATION: All CT scans at this facility use at least one of these dose optimization te chniques: automated exposure control; mA and/or kV adjustment per patient size (includes targeted exa ms where dose is matched to clinical indication); or iterative reconstruction.
== END ==
PROVIDERS: PCP Student in an Organized Health Care Education/Training Program; Visit Provider Surgery
DX: R07.89 Other chest pain (principal); R91.8 Other nonspecific abnormal finding of lung field; S22.080D Wedge compression fracture of T11-T12 vertebra, subsequent encounter for fracture with routine healing; X58.XXXD Exposure to other specified factors, subsequent encounter
CPT/HCPCS: 71260; 74160; 82565; J3490

== ENCOUNTER → 2023-12-05 00:21 | Outpatient (CLI) | payer MEDICARE, SELFPAY ==
--- NOTE | 2023-12-05 07:15 | DI.DEXA_ITS ---
Exam(s) XR DEXA BONE DENSITY W/WO QUINTIN EXAM: XR DEXA BONE DENSITY W/WO QUINTIN CLINICAL HISTORY: eval bn density 2' ht loss, T comp fx,screening for osteoporosis,z78.0 TECHNIQUE: COMPARISON: No exams were available for comparison FINDINGS: Lateral Spine Image: Unremarkable. No compression deformities identified. Left hip: Total T-Score: -2.4 Total Z-Score: -0.9 T- and Z-scores: Findings are consistent with osteopenia. No evidence of osteoporosis. Lumbar Spine: Total T-Score: -0.3 Total Z-Score: 1.8 T- and Z-scores: Within normal limits. No evidence of osteoporosis. There is osteoporosis seen in the left forearm with a total T-score of -4.1 and a Z-score of -2.1. IMPRESSION: Osteoporosis in the left forearm.
== END ==
PROVIDERS: PCP Student in an Organized Health Care Education/Training Program; Visit Provider Student in an Organized Health Care Education/Training Program
DX: Z13.820 Encounter for screening for osteoporosis (principal); M81.0 Age-related osteoporosis without current pathological fracture
CPT/HCPCS: 77080

== ENCOUNTER 2024-01-02 05:47 | Outpatient (CLI) | payer MEDICARE, SELFPAY ==
[2024-01-02 12:34] LABS: Magnesium 2.1 mg/dL (1.8-2.4)
[2024-01-02 13:06] LABS: Vitamin D 25 Total 43.2 ng/mL (30-100)
== END 2024-01-02 05:48 | disposition home or self-care (01) ==
LOC: LOS 05:47
PROVIDERS: PCP Student in an Organized Health Care Education/Training Program; Visit Provider Student in an Organized Health Care Education/Training Program
DX: S22.000A Wedge compression fracture of unspecified thoracic vertebra, initial encounter for closed fracture (principal); Z91.89 Other specified personal risk factors, not elsewhere classified; R07.89 Other chest pain; Z87.891 Personal history of nicotine dependence; X58.XXXD Exposure to other specified factors, subsequent encounter
CPT/HCPCS: 36415; 82306; 83735

== ENCOUNTER → 2024-02-18 09:52 | Outpatient (BNVA) | payer MEDICARE, SELFPAY | PROVIDERS: PCP Student in an Organized Health Care Education/Training Program; Referring Provider Student in an Organized Health Care Education/Training Program; Visit Provider Psychiatry & Neurology Neurology | DX: G62.9 Polyneuropathy, unspecified (principal); R73.9 Hyperglycemia, unspecified; G25.0 Essential tremor | CPT/HCPCS: 99215 ==

== ENCOUNTER 2024-02-25 05:08 | Outpatient (CLI) | payer MEDICARE, SELFPAY ==
[2024-02-25 11:25] LABS: Hemoglobin A1C 5.8 % (<5.7)
[2024-02-25 11:32] LABS: Anion Gap 11.1 mmol/L (3-11); BUN 17 mg/dL (7-18); CO2 25.9 mmol/L (21.0-32.0); CREATININE 0.9 mg/dL (0.55-1.02); Calcium 8.9 mg/dL (8.5-10.1); Calculated LDL 125 mg/dL (<100); Chloride 107 mmol/L (98-107); Cholesterol 225 mg/dL (<200); Glucose 91 mg/dL (74-106); HDL Cholesterol 86 mg/dL (40-60); Sodium 144 mmol/L (136-145); TSH (W/Ref FT4) 1.37 uIU/mL (0.36-3.74); Triglyceride 70 mg/dL (<150)
[2024-02-25 11:50] LABS: Vitamin B12 735 pg/mL (193-986)
[2024-02-26 12:29] LABS: Albumin 63.3 % (55.8-66.1); Albumin g/dL 4.2 g/dL (3.6-5.2); Total Protein 6.6 g/dL (6.3-8.2)
== END 2024-02-25 05:09 | disposition home or self-care (01) ==
LOC: LBO 05:08
PROVIDERS: Psychiatry & Neurology Neurology; PCP Student in an Organized Health Care Education/Training Program; Visit Provider Student in an Organized Health Care Education/Training Program
DX: I10 Essential (primary) hypertension (principal); K21.9 Gastro-esophageal reflux disease without esophagitis; R63.4 Abnormal weight loss; R73.9 Hyperglycemia, unspecified; G62.9 Polyneuropathy, unspecified; R20.0 Anesthesia of skin
CPT/HCPCS: 36415; 80048; 80061; 82607; 83036; 84165; 84443

== ENCOUNTER → 2024-04-14 09:18 | Outpatient (BNVA) | payer MEDICARE, SELFPAY | PROVIDERS: PCP Student in an Organized Health Care Education/Training Program; Referring Provider Student in an Organized Health Care Education/Training Program; Visit Provider Physician Assistant Surgical | DX: J45.909 Unspecified asthma, uncomplicated (principal); K21.9 Gastro-esophageal reflux disease without esophagitis | CPT/HCPCS: 99214 ==

== ENCOUNTER 2024-05-26 02:07 | Outpatient (CLI) | payer MEDICARE, SELFPAY ==
--- NOTE | 2024-05-26 06:45 | DI.CT_ITS ---
Exam(s) CT CHEST WO EXAM: CT CHEST WO CLINICAL HISTORY: 6 month follow up lung nodules,r91.8. TECHNIQUE: Imaging protocol: Axial computed tomography images were obtained and coronal and sagittal reformatted images were created and reviewed. COMPARISON: CT CT CHEST/ABD W from 11/12/2023 FINDINGS: Tracheobronchial tree: Patent where visualized. No bronchiectasis is present. Pulmonary parenchyma: Atelectatic changes are seen in the lung bases. There are few scattered pulmon michelle nodules present. The largest measures 4 mm (series 2, image 75) in the left lower lobe. This is unchanged compared to the prior examination. No new pulmonary nodules are present. No focal consol idating infiltrates. Mediastinum and Kylee: No dominant adenopathy or fluid collection. The esophagus is unremarkable. Thyroid gland: Unremarkable. Pleura: No effusion or pneumothorax. Heart: The heart is not dilated. Coronary artery calcification is present. No pericardial effusion. Aorta: Thoracic aorta non-dilated. Atherosclerotic calcification is present. Upper abdomen: Unremarkable. Lymph nodes: Within normal limits. Soft tissues: Unremarkable. Bones:Within normal limits for the patient's age. Stable T11 compression deformity. IMPRESSION: Stable pulmonary nodules. No new pulmonary nodules are present. RADIATION DOSE DELIVERED: Total DLP Total DLP DATA REPOSITORY: All CT scans at this facility are submitted to the National Radiology Data Registry (NRDR) Dose Index Registry (DIR) with the [employer] (ACR). RADIATION OPTIMIZATION: All CT scans at this facility use at least one of these dose optimization te chniques: automated exposure control; mA and/or kV adjustment per patient size (includes targeted exa ms where dose is matched to clinical indication); or iterative reconstruction.
== END 2024-05-26 02:27 ==
LOC: DI 02:07
PROVIDERS: PCP Student in an Organized Health Care Education/Training Program; Visit Provider Student in an Organized Health Care Education/Training Program
DX: E04.1 Nontoxic single thyroid nodule (principal)
CPT/HCPCS: 71250

== ENCOUNTER 2024-09-25 00:20 | Outpatient (CLI) | payer MEDICARE, SELFPAY ==
--- NOTE | 2024-09-25 06:45 | DI.US_ITS ---
Exam(s) US ABDOMEN EXAM: US ABDOMEN CLINICAL HISTORY: ? mass,? abd path 2' restricted/ruq,luq pain, liver nodule TECHNIQUE: Ultrasound of complete upper abdomen performed using standard protocol. COMPARISON: CT CT THORAX CTA from 05/02/2023 US US AAA SCREENING from 07/17/[address] CHEST/ABD W from 11/12/2023 FINDINGS: There is no ascites evident. LIVER: There are no hepatic lesions evident nor obvious dilatation of intrahepatic ducts. GALLBLADDER/BILIARY: There are no gallstones. No gallbladder wall edema nor pericholecystic fluid. The common hepatic duct isnot dilated, measuring 3-4mm at the level of janee hepatis. PANCREAS: There is no evidence of pancreatic mass nor dilatation of the pancreatic duct. SPLEEN: The spleen is not enlarged and there are no intrasplenic lesions evident. KIDNEYS:Kidneys exhibit normal size with no evidence of solid mass, calculus, nor hydronephrosis. The re is a complex cyst in the inferior aspect of the right kidney measuring 3 x 2.7 cm. It contains so me internal septae. ABDOMINAL AORTA: There is no evidence of abdominal aortic aneurysm. IVC: Normal diameter where visualized. IMPRESSION: 1. No evidence of cholelithiasis nor dilatation of the biliary tree. 2. There is a mildly complex cyst in the inferior aspect of the right kidney measuring approximately 3 x 2.7 cm. It appears to contain a thin internal septation. Recommend repeat scanning in 1 year t o ensure stability. No other significant renal findings. 3. There is no ascites. DATA REPOSITORY:
== END 2024-09-25 00:40 ==
LOC: DI 00:21
PROVIDERS: PCP Student in an Organized Health Care Education/Training Program; Visit Provider Student in an Organized Health Care Education/Training Program
DX: K76.89 Other specified diseases of liver (principal)
CPT/HCPCS: 76700

== ENCOUNTER → 2024-10-13 09:41 | Outpatient (BNVA) | payer MEDICARE, SELFPAY | PROVIDERS: PCP Student in an Organized Health Care Education/Training Program; Referring Provider Student in an Organized Health Care Education/Training Program; Visit Provider Physician Assistant Surgical | DX: J45.909 Unspecified asthma, uncomplicated (principal); K21.9 Gastro-esophageal reflux disease without esophagitis; Z29.11 Encounter for prophylactic immunotherapy for respiratory syncytial virus (RSV) | CPT/HCPCS: 90380; 90679; 96381; 99214 ==

== ENCOUNTER 2024-10-22 12:10 | Outpatient (CLI) | payer MEDICARE, SELFPAY ==
--- NOTE | 2024-10-22 11:45 | DI.RAD_ITS ---
Exam(s) XR CHEST 2V PA LATERAL EXAM: XR CHEST 2V PA LATERAL CLINICAL HISTORY: eval pna, Cough R05.9 TECHNIQUE: 2D digital imaging was performed of the chest. Two images were obtained. PA and lateral views were obtained. COMPARISON: CR XR CHEST 2V PA LATERAL from 07/13/2022 FINDINGS: MEDIASTINUM: Normal. HEART: Normal. PULMONARY VASCULATURE: Normal. LUNGS: Clear. PLEURAL SPACE: No pleural effusion or pneumothorax. BONE:Within normal limits for the patient's age. OTHER FINDINGS:Normal. IMPRESSION: No acute pulmonary findings. DATA REPOSITORY: RADIATION DOSE DELIVERED:
== END 2024-10-22 12:30 ==
LOC: DI 12:10
PROVIDERS: PCP Student in an Organized Health Care Education/Training Program; Visit Provider Nurse Practitioner Family
DX: R05.9 Cough, unspecified (principal)
CPT/HCPCS: 71046

== ENCOUNTER 2024-11-03 01:49 | Outpatient (CLI) | payer MEDICARE, SELFPAY ==
--- NOTE | 2024-11-03 07:06 | DI.CT_ITS ---
Exam(s) CT ABDOMEN PELVIS WO/W EXAM: CT ABDOMEN PELVIS WO/W CLINICAL HISTORY: evaluate thickened septae of kidney cyst,n28.1. TECHNIQUE: Imaging Protocol: The urogram protocol. Axial computed tomography images with coronal an d sagittal reformatted images were created and reviewed CONTRAST MATERIAL: Intravenous: Omnipaque-350 100cc Oral: None COMPARISON: CT CT CHEST/ABD W from 11/12/2023 FINDINGS: VISUALIZED LUNG BASES: There is some mild infiltrate in the left lower lobe just above the hemidiaphr agm, similar to previous. No pleural effusions.. ABDOMEN: There is no ascites. LIVER: There are no focal hepatic lesions evident. No dilated intrahepatic ducts. GALLBLADDER/BILIARY: No obvious gallbladder pathology. CBD is not dilated. PANCREAS: No evidence of pancreatic mass nor dilatation of the pancreatic duct. SPLEEN: Spleen is not enlarged. No obvious intrasplenic lesions. Splenic and portal veins are paten t. ADRENALS: There are no significant adrenal masses. KIDNEYS:The left kidney appears unremarkable. With respect of the right kidney, there is a 3.4 x 2.8 cm cyst in the lateral cortex towards the lower pole which contains a thin sub mm thickness septum. No mural calcification nor significant mural nodules evident. No solid lesions. Has appearance of a Bosniak type 2 cyst. There are no calculi nor hydronephrosis on either side. URETERS: There is a single ureter on each side. URINARY BLADDER: There is a cyst is seal. No obvious masses in the urinary bladder ABDOMINAL AORTA: Abdominal aorta is not enlarged. LYMPH NODES:There is no retroperitoneal nor paraaortic adenopathy. ABDOMINAL WALL: No evidence of significant anterior abdominal wall nor inguinal hernia. GI: There is no evidence of bowel obstruction, free air, nor abscess. PELVIS: GI: No evidence of appendicitis.Sigmoid diverticulosis without evidence of obvious acute diverticulit is. LYMPH NODES: There is no intrapelvic nor inguinal adenopathy. REPRODUCTIVE: Uterus is surgically absent. No abnormal adnexal masses nor free fluid in the pelvis. URINARY BLADDER: As above OSSEOUS: Lumbar scoliosis convex right. Multilevel disc space narrowing and facet arthropathy. Comp ression fracture of T11 noted which does not appear acute. Anterolisthesis L5 upon S1. No significant osseous lesions. IMPRESSION: 1. There is a 3.4 x 2.8 cm benign cyst in the right kidney which exhibits a thin sub mm internal sept ation. Uncomplicated Bosniak type 2 cysts. No other focal renal findings. No hydronephrosis. 2. Urinary bladder cystocele is noted. There has been previous hysterectomy. 3. Nonacute appearing T11 compression fracture. 4. Other findings as above. RADIATION DOSE DELIVERED: 739.6mGy.cm Total DLP DATA REPOSITORY: All CT scans at this facility are submitted to the National Radiology Data Registry (NRDR) Dose Index Registry (DIR) with the [employer] (ACR). RADIATION OPTIMIZATION: All CT scans at this facility use at least one of these dose optimization te chniques: automated exposure control; mA and/or kV adjustment per patient size (includes targeted exa ms where dose is matched to clinical indication); or iterative reconstruction.
[2024-11-03 11:09] LABS: Anion Gap 5.3 mmol/L (3-11); BUN 17 mg/dL (7-18); CO2 28.7 mmol/L (21.0-32.0); CREATININE 0.9 mg/dL (0.55-1.02); Calcium 9.1 mg/dL (8.5-10.1); Calculated LDL 136 mg/dL (<100); Chloride 107 mmol/L (98-107); Cholesterol 220 mg/dL (<200); Estimated GFR 68.77 (mL/min/1.73m2); Folate 17.2 ng/mL (8.6-20.0); Glucose 94 mg/dL (74-106); HDL Cholesterol 72 mg/dL (40-60); Sodium 141 mmol/L (136-145); Triglyceride 61 mg/dL (<150)
[2024-11-03] MEDS: Omnipaque 350 MG/ML 100 ML BTL IJ (11:15)
[2024-11-03] MEDS: Normal Saline Flush 10 ML SYR IJ (11:21)
[2024-11-03] MEDS: Normal Saline - Diluent 50 ML VIAL IJ (11:21)
== END 2024-11-03 02:09 ==
PROVIDERS: PCP Student in an Organized Health Care Education/Training Program; Visit Provider Student in an Organized Health Care Education/Training Program
DX: I10 Essential (primary) hypertension (principal); R53.83 Other fatigue; M47.814 Spondylosis without myelopathy or radiculopathy, thoracic region; N28.1 Cyst of kidney, acquired
CPT/HCPCS: 80048; 80061; 74178; 82746; J3490

== ENCOUNTER 2025-01-11 01:18 | Outpatient (CLI) | payer MEDICARE, SELFPAY ==
--- NOTE | 2025-01-11 06:45 | DI.MAMMO_ITS ---
Exam(s) MAMMO SCREENING EXAM: MAMMO SCREENING CLINICAL HISTORY: screening,z12.31 TECHNIQUE: Bilateral full field digital CC and MLO mammographic images were obtained with 3D tomosyn thesis and utilizing computer aided detection (CAD). COMPARISON: Available for comparison. FINDINGS: Masses/Architectural Distortion: None seen. Microcalcifications: No suspicious pleomorphic-type are seen. Skin Thickening/Nipple Retraction: None. IMPRESSION: 1. No significant interval change with no specific features of malignancy noted. 2. Unless there is more urgent need, screening mammography is recommended, as per [employer] guidelines. BI-RADS Category 1 - Negative Breast Density - Category B - Scattered areas of fibroglandular density Breast density category C or D implies that the patient has dense breast tissue. Dense breast tissue is very common and is not abnormal but dense breast tissue can make it harder to find cancer on a ma mmogram. Also, dense breast tissue may increase their breast cancer risk. This information about the result of the mammogram report was provided to the patient to raise their awareness. Use this report when you speak with the patient about their risks for breast cancer, which includes their family hist ory. At that time, you may recommend for more screening tests (Ultrasound or MRI) as they might be us eful based on their risk. A negative radiographic report should not delay biopsy if a dominant or clinically suspicious mass is present. Up to ten percent of cancers are not identified on mammography. A negative report may reinforce clinical impression. Adenosis and dense breasts may obscure an underlying neoplasm. False positive reports average 6 to 10%. Patient will receive a letter notifying them of these results.
== END 2025-01-11 01:38 ==
LOC: DI 01:18
PROVIDERS: PCP Nurse Practitioner Family; Visit Provider Nurse Practitioner Family
DX: Z12.31 Encounter for screening mammogram for malignant neoplasm of breast (principal); R92.323 Mammographic fibroglandular density, bilateral breasts
CPT/HCPCS: 77063; 77067

== ENCOUNTER 2025-02-08 00:44 | Outpatient (CLI) | payer MEDICARE, SELFPAY ==
--- NOTE | 2025-02-08 13:32 | W.NUTRFU ---
Date of service: 02/08/25 Time of Service: 12:00 Nutrition Note NOTE: met with Zeny for nutrition visit regarding diabetes prevention - A1C level up to 5.9% 01/22/25 and it concerned her. She feels she can be a moderately picky eater, which poses more of a challenge. Because of her older age and shorter stature (60) and lack of intense exercise, I shared her kcal needs are on the lower side - around 1400 kcals. We spent most time going over goals to reduce added sugar to 15g or less and increase fiber to 25g or more - avoiding processed foods and trying to get whole plants at most meals and snacks being the general priority. Reviewed menu planning resources with help planning menus that use foods she also likes. Reviewed how to track and manage added sugars. Discussed the unsung aspects of glucose control - sleep, stress mgt and exercise on top of a base of activity. Zeny took my contact info should she desire more follow up or desire any additional resources. Time Spent in Nutritional Counseling and Treatment: 45 min
== END 2025-02-08 00:45 | disposition home or self-care (01) ==
LOC: DS 00:44
PROVIDERS: PCP Nurse Practitioner Family; Visit Provider Dietitian, Registered
DX: R73.03 Prediabetes (principal)
CPT/HCPCS: 00123; 97802

== ENCOUNTER → 2025-05-06 11:15 | Outpatient (BNVA) | payer MEDICARE, SELFPAY | PROVIDERS: PCP Nurse Practitioner Family; Referring Provider Nurse Practitioner Family; Visit Provider Physician Assistant Surgical | DX: J45.909 Unspecified asthma, uncomplicated (principal); K21.9 Gastro-esophageal reflux disease without esophagitis; Z87.891 Personal history of nicotine dependence | CPT/HCPCS: 99214 ==

== ENCOUNTER 2025-05-19 01:46 | Outpatient (CLI) | payer MEDICARE, SELFPAY ==
--- NOTE | 2025-05-19 07:15 | DI.RAD_ITS ---
Exam(s) RF BARIUM SWALLOW EXAM: RF BARIUM SWALLOW CLINICAL HISTORY: coughing with swallowing,choking sensation,r09.89 TECHNIQUE: 2D and realtime digital imaging was performed. CONTRAST MATERIAL: Oral barium contrast was administered. COMPARISON: CR XR CHEST 2V PA LATERAL from 10/22/2024 FINDINGS: CHEST X-RAY: The heart and pulmonary vasculature are within normal limits. The lungs are clear. No pleural effusion or pneumothorax is present. The bones are within normal limits for the patient's age. Moderate degenerative changes are seen in the cervical spine. There is reversal of the normal cervical lordosis centered at C5-C6. ESOPHAGRAM: The esophagus is patent with no evidence for erosions, fold thickening, strictures, or masses. With regards to the motility, there is a normal primary stripping wave. There are mild tertiary contractions which can be seen with presbyesophagus. There is no hiatal hernia or gastroesophageal reflux. A barium tablet passed into the stomach. IMPRESSION: 1. No evidence of hernia or gastroesophageal reflux during the examination. 2. No erosions or strictures in the esophagus. 3. There was no aspiration during the examination. RADIATION DOSE DELIVERED: ahbijeet Hernandez=12.2 mGy
[2025-05-19] MEDS: Barium Sulfate 700 MG TAB PO (12:03)
[2025-05-19] MEDS: Barium Sulfate 98% W/W 140 ML BTL PO (12:04)
[2025-05-19] MEDS: Barium Sulfate 60% W/V 355 ML BTL PO (12:04)
== END 2025-05-19 02:06 ==
LOC: DI 01:46
PROVIDERS: PCP Nurse Practitioner Family; Visit Provider Physician Assistant Surgical
DX: R09.89 Other specified symptoms and signs involving the circulatory and respiratory systems (principal)
CPT/HCPCS: 74221; J3490

== ENCOUNTER 2025-07-01 04:24 | Outpatient (CLI) | payer MEDICARE, SELFPAY ==
[2025-07-01 09:41] LABS: Abs Immature Grans 0.02 10^3/uL (0.0-0.06); HCT 40.3 % (36.0-46.0); HGB 13.3 g/dL (11.2-15.7); Immature Grans % 0.3 %; MCH 30.2 pg (27.0-33.0); MCHC 33.0 % (32.0-36.0); MCV 91 fL (80-95); MPV 8.8 fL (8.0-11.0); Platelet Count 269 10^3/uL (130-400); RBC 4.41 10^6/uL (3.93-5.22); RDW 12.1 % (11.7-14.6); RDW-SD 40.9 fL; WBC 6.26 10^3/uL (4.4-10.8)
[2025-07-01 11:05] LABS: TSH (W/Ref FT4) 1.37 uIU/mL (0.36-3.74)
== END 2025-07-01 04:25 | disposition home or self-care (01) ==
LOC: LBO 04:24
PROVIDERS: Physician Assistant Surgical; Absent Provider Nurse Practitioner Family; PCP Nurse Practitioner Family; Referring Provider Nurse Practitioner Family; Visit Provider Nurse Practitioner Family
DX: R53.83 Other fatigue (principal); J45.909 Unspecified asthma, uncomplicated
CPT/HCPCS: 36415; 82785; 84443; 85025

== ENCOUNTER → 2025-07-14 11:22 | Outpatient (BNVA) | payer MEDICARE, SELFPAY | PROVIDERS: PCP Nurse Practitioner Family; Referring Provider Nurse Practitioner Family; Visit Provider Internal Medicine Pulmonary Disease | DX: R05.9 Cough, unspecified (principal); R91.8 Other nonspecific abnormal finding of lung field; J45.50 Severe persistent asthma, uncomplicated; Z87.891 Personal history of nicotine dependence | CPT/HCPCS: 99214 ==

== ENCOUNTER 2025-07-20 01:29 | Outpatient (CLI) | payer MEDICARE, SELFPAY ==
--- NOTE | 2025-07-20 06:15 | DI.US_ITS ---
Exam(s) US THYROID EXAM: US THYROID CLINICAL HISTORY: ? LN on left of thyroid,lymph node syndrome,r09.89. TECHNIQUE: Ultrasound thyroid performed using standard protocol. COMPARISON: No exams were available for comparison FINDINGS: ISTHMUS: 2 mm. There is a 0.9 x 0.5 x 0.9 cm anechoic well-circumscribed smoothly marginated lesion in the isthmus corresponding to the palpable abnormality. This is consistent with a cyst. No follow-up is recommended. RIGHT LOBE: Size: 3.6 x 1.5 x 1.4 cm Echogenicity: Normal. Vascularity: Normal. Nodules: There are no nodule seen in the right thyroid gland to warrant follow- up or biopsy. LEFT LOBE: Size: 3.0 x 1.4 x 1.4 cm Echogenicity: Normal. Vascularity: Normal. Nodules: There is a 0.7 x 0.4 x 0.5 cm solid hypoechoic nodule present. It has ill-defined margins and no echogenic foci. It is consistent with a TI rads level 4 nodule. Due to its size, no follow-up or biopsy is recommended. OTHER FINDINGS: Sonographically normal appearing lymph nodes are seen in the neck. IMPRESSION: 1. There are no thyroid nodules identified to warrant follow-up or biopsy. 2. There is a 0.9 x 0.5 x 0.9 cm simple cyst in the isthmus which corresponds to the palpable abnormality. DATA REPOSITORY:
== END 2025-07-20 01:49 ==
LOC: DI 01:29
PROVIDERS: PCP Nurse Practitioner Family; Visit Provider Nurse Practitioner Family
DX: R09.89 Other specified symptoms and signs involving the circulatory and respiratory systems (principal)
CPT/HCPCS: 76536

== ENCOUNTER 2025-07-27 03:32 | Outpatient (CLI) | payer MEDICARE, SELFPAY ==
--- NOTE | 2025-07-27 09:47 | W.PFT ---
Date of service: 07/27/25 Time of Service: 08:03 Pulmonary Function Test Result Indications: Asthma Impression 1. Good patient effort was noted. ATS standards for reproducibility were met. 2. Spirometry showed a FEV1:FVC ratio below predicted, which can be seen with mild obstruction or be a normal variant. Mid-flows were reduced, consistent with small airways disease 3. Following the administration of a bronchodilator there was not a significant response 4. TLC was normal. No evidence of restrictive lung disease 5. DLCO was normal indicating normal alveolar gas exchange
[2025-07-27] MEDS: Levalbuterol HFA 15 GM INH 4 PUFF IH (09:59)
[2025-07-27] MEDS: Inhaler, Assist Device 1 EACH MC (09:59)
== END 2025-07-27 03:33 | disposition home or self-care (01) ==
LOC: RT 03:32
PROVIDERS: PCP Nurse Practitioner Family; Visit Provider Internal Medicine Pulmonary Disease
DX: J44.9 Chronic obstructive pulmonary disease, unspecified (principal)
CPT/HCPCS: 94060; 94726; 94729

== ENCOUNTER 2025-09-20 09:51 | Emergency (ER) | payer MEDICARE, SELFPAY ==
[2025-09-20] VITALS (35 sets, daily range): BP systolic 106–134; BP diastolic 56–82; PULSE 84–106; RESP 18–32; TEMP 36.7–39; O2SAT 91–97
[2025-09-20] MEDS: Normal Saline 1,000 ML 1000 ML IV (09:50)
--- NOTE | 2025-09-20 10:00 | RT.EKG_ITS ---
APPROVED REPORT Exam: Resting ECG Reason for Exam: nausea/vomiting Patient Location: E HR:87 bpm ECG Measurements Heart Rate 87 AXIS GA 142 P 57 QRSd 93 QRS 49 QT 363 T 56 QTc 436 Conclusion Sinus rhythm...normal P axis, V-rate 60- 99 No Occlusion [place]
--- NOTE | 2025-09-20 10:08 | ED.GENADUL_ITS ---
Discharge Plan Disposition Patient Disposition: Home Condition: Improving Discharge Details Clinical Impression: Nausea vomiting and diarrhea Primary Care Provider: Sharon Hoskins ED Provider: Jami Baugh Home Meds and New Rx's Prescriptions: New ondansetron 4 mg tablet,disintegrating 4 mg PO Q6H PRN (Reason: nausea and vomiting) Qty: 10 0RF Continued guaifenesin 600 mg tablet extended release 12hr 600 mg PO Q12H PRN (Reason: congestion) Qty: 20 0RF gabapentin 300 mg capsule 300 mg PO QHS Qty: 90 3RF Rx Instructions: Re-started due to poor tolerance of PRIMIDINE (for tremor/sleep) lorazepam 0.5 mg tablet 0.5 mg PO DAILY MDD 1mg PRN (Reason: anxiety, panic episode) Qty: 20 3RF Rx Instructions: Continue episodically, with 2nd tab prn heightened/severe panic episode magnesium glycinate 120 mg capsule PO BID calcium 150 mg tablet 300 mg PO DAILY gabapentin 100 mg capsule See Rx Instructions .ROUTE .COMPLEX Dose Instruction: TAKE THREE CAPSULES BY MOUTH EVERY EVENING AT BEDTIME Rx Instructions: TAKE one CAPSULES BY MOUTH EVERY AM sertraline 50 mg tablet 50 mg PO DAILY Qty: 90 3RF Rx Instructions: PT DOES NOT NEED A REFILL, BUT INCREASING DOSE fluticasone propion-salmeterol [Advair HFA] 230-21 mcg/actuation HFA aerosol inhaler 2 puff inhalation BID Qty: 12 6RF Methyl-Guard Plus PO DAILY cannabidiol 100 mg/mL solution PO DAILY Rx Instructions: CBD Oral Oil acetaminophen 500 mg capsule 1,000 mg PO Q6H PRN ibuprofen 200 mg capsule 400 mg PO Q4H PRN latanoprost 0.005 % drops 1 drp ophthalmic (eye) DAILY levalbuterol tartrate 45 mcg/actuation HFA aerosol inhaler See Rx Instructions .ROUTE .COMPLEX Qty: 15 12RF Dose Instruction: INHALE TWO PUFFS BY MOUTH EVERY 6 HOURS Rx Instructions: INHALE TWO PUFFS BY MOUTH EVERY 6 HOURS cholecalciferol (vitamin D3) 25 mcg (1,000 unit) capsule 25 mcg PO DAILY PRN codeine-guaifenesin 10-100 mg/5 mL liquid 10 ml PO Q6H PRN (Reason: severe cough) Qty: 100 0RF Rx Instructions: Trial for cough qHS; DO not use codeine with lorazepam. Discharge Instructions Instructions: Ondansetron, Nausea and Vomiting, Adult ED Additional Instructions: As we discussed, your labs are reassuring here today. No electrolyte abnormalities, evidence of severe dehydration. You did look dehydrated when you first came in today but do appear to be improving after oral hydration as well as IV fluids. Please continue frequent sips of fluids. You may continue with the Zofran as prescribed should you develop develop any further nausea or vomiting. Your diarrhea also seems to have slowed. If this picks up you can consider Imodium but if you can tolerate allowing this its natural course, it may help speed up the process of the illness. This is likely caused by a virus alternatively, by the sauce that you had yesterday. Please follow-up with your primary care in 1 to 2 weeks for reevaluation. If you develop any fever/chills, inability stay hydrated, abdominal pain or other new/worsening symptom please seek care urgently once again. You may use Tylenol to help with fever should this recur. Please do not exceed 3000 mg/day. Please make sure that if you are developing a fever you will need to increase your hydration to be able to prevent dehydration. Stand Alone Forms: Portal Information Referrals: Sharon Hoskins APRN [Primary Care Provider, Family Practice] [facility] General Date/Time Provider Initiated Documentation: 09/20/25 09:57 . Limitations to Documentation: no limitations . Information obtained by: patient and RN notes reviewed . History of Present Illness 70 year old F presents to the emergency department with the chief complaint of nausea, vomiting, diarrhea, described as severe, and is localized to the abdomen. Patient reports no radiation. Patient started experiencing this hour(s) and it has been now resolved. Medication improves symptom(s), (zofran from EMS) Other factors that worsen symptoms (associates with bad sausage she ate yesterday) . Patient did receive the following treatments prior to arrival, other (zofran) Related Data Home Medications ?Medication ?Instructions ?Recorded ?Confirmed Methyl-Guard Plus cap PO DAILY 10/19/22 acetaminophen 500 mg capsule 1,000 mg PO Q6H PRN 10/1907/14/25 cannabidiol 100 mg/mL oral solution PO DAILY 10/19/22 07/14/25 ibuprofen 200 mg capsule 400 mg PO Q4H PRN 10/19/22 1 latanoprost 0.005 % eye drops 1 drp ophthalmic (eye) D AILY 10/19/22 07/14/25 guaifenesin 600 mg tablet, 600 mg PO Q12H PRN congesti on #20 02/05/23 07/14/25 extended release 12 hr tabs levalbuterol tartrate 45 See Rx Instructions .Route 0 06/22/24 07/14/25 mcg/actuation aerosol inhaler .COMPLEX #15 grams cholecalciferol (vitamin D3) 25 25 mcg PO DAILY PRN 07/14/25 mcg (1,000 unit) capsule gabapentin 300 mg capsule 300 mg PO QHS #90 caps 01/2207/14/25 lorazepam 0.5 mg tablet 0.5 mg PO DAILY PRN anxiety, panic 01/22/25 07/14/25 episode #20 tabs calcium 150 mg tablet 300 mg PO DAILY 06/23/2511/07 gabapentin 100 mg capsule See Rx Instructions .Route . COMPLEX 06/23/25 07/14/25 magnesium glycinate 120 mg (as mg PO BID 06/23/2511/07 glycinate) capsule sertraline 50 mg tablet 50 mg PO DAILY #90 tabs 06/1407/14/25 codeine 10 mg-guaifenesin 100 mg/5 10 ml PO Q6H PRN se yajaira cough #100 07/05/25 07/14/25 mL oral liquid mL fluticasone propionate 230 2 puff inhalation BID #12 g kenji 07/14/25 07/14/25 mcg-salmeterol 21 mcg/actuation HFA inhaler (Advair HFA) ondansetron 4 mg disintegrating 4 mg PO Q6H PRN nausea and 09/20/25 tablet vomiting #10 tabs Previous Rx's ?Medication ?Instructions ?Recorded guaifenesin 600 mg tablet, 600 mg PO Q12H PRN congesti on #20 02/05/23 extended release 12 hr tabs levalbuterol tartrate 45 See Rx Instructions .Route 0 06/22/24 mcg/actuation aerosol inhaler .COMPLEX #15 grams gabapentin 300 mg capsule 300 mg PO QHS #90 caps 01/22 lorazepam 0.5 mg tablet 0.5 mg PO DAILY PRN anxiety, panic 01/22/25 episode #20 tabs sertraline 50 mg tablet 50 mg PO DAILY #90 tabs 06/14 codeine 10 mg-guaifenesin 100 mg/5 10 ml PO Q6H PRN se yajaira cough #100 07/05/25 mL oral liquid mL fluticasone propionate 230 2 puff inhalation BID #12 g kenji 07/14/25 mcg-salmeterol 21 mcg/actuation HFA inhaler (Advair HFA) ondansetron 4 mg disintegrating 4 mg PO Q6H PRN nausea and 09/20/25 tablet vomiting #10 tabs Allergies Allergy/AdvReac Type Severity Reaction Status Date / Time oxycodone (From Percocet) Allergy Intermediate Nausea Verified 09/20/25 09:56 tiotropium (From Spiriva AdvReac Contraindic Verified 09/20/25 09:56 with HandiHaler) ated General Stated Complaint: Nausea/Vomit/Diar YOSSI: 3 Review of Systems Constitutional Constitutional: Reports as per HPI, Denies chills, Reports fatigue, Denies fever(s) and Denies headache(s) ENT Ears, Nose, Mouth, and Throat: Denies headache(s) Cardiovascular Cardiovascular: Reports as per HPI, Denies chest pain and Denies dyspnea Respiratory Respiratory: Reports as per HPI, Denies cough and Denies dyspnea Gastrointestinal Gastrointestinal: Reports as per HPI Musculoskeletal Musculoskeletal: Reports as per HPI and Denies back pain Integumentary/Breasts Skin/Breast: Reports as per HPI and Denies rash Neurologic Neurologic: Reports as per HPI and Denies headache(s) Endocrine Endocrine: Reports fatigue Exam Const General: cooperative, comfortable, no acute distress, well developed and ill appearing acutely (appears fatigued and dehydrated) Nutritional Appearance: average body habitus and well nourished Orientation: alert and awake [facility] Head: normal to inspection Mouth: oral mucosae normal and mucous membranes dry (appears dry) Resp Effort & Inspection: normal respiratory effort, able to speak in complete sentences and no respiratory distress Auscultation: clear to auscultation bilaterally, no rales, no rhonchi and no w heezes Cardio Rate: regular rate Rhythm: regular rhythm Heart Sounds: S1 normal and S2 normal GI Inspection: normal to inspection Palpation: soft, no hepatosplenomegaly, no guarding, no hernias, no masses, no pulsatile masses, not rigid and nontender Percussion: normal to percussion Auscultation: normal bowel sounds Back/Spine/Pelvis Back: no CVA tenderness Skin General skin exam: no rashes or lesions noted Trauma: no lacerations or abrasions Neuro General: patient alert and patient awake Cognition: normal cognition Speech: speech normal Gait: normal gait Course Vital Signs Vital signs: Vital Signs Temperature 36.7 C 09/20/25 09:50 Pulse 95 H 09/20/25 09:50 Respiratory Rate 18 09/20/25 09:50 Blood Pressure 125/82 09/20/25 09:50 Pulse Oximetry 96 09/20/25 09:50 Temperature 36.7 C 09/20/25 09:50 Temperature Source Oral 09/20/25 09:50 Pulse 95 H 09/20/25 09:50 Respiratory Rate 18 09/20/25 09:50 Blood Pressure 125/82 09/20/25 09:50 Pulse Oximetry 96 09/20/25 09:50 Oxygen Delivery Method Room Air 09/20/25 09:50 Oxygen Flow Rate 0 09/20/25 09:50 Pain Level 0 09/20/25 09:50 Medical Decision Making Patient is a pleasant 70-year-old female with past medical history significant for GERD, severe asthma, pulmonary nodules, peripheral neuropathy, sclerosis, anxiety, presenting via EMS with chief complaint of nausea, vomiting and diarrhea. She reports this began around 10 PM yesterday. She attributes to eating questionable sausage. However, she does report that her son, who ate the same dinner she did, did not get ill. She has not any fevers but states that she has had chills, particularly when she is actively vomiting. Has not had any abdominal pain. No back pain. States that now she is currently feeling dry and fatigued. She denies any chest pain or shortness of breath. No exertional component to her symptoms. No change in urinary habits. No blood was noted in emesis or stool. Past surgical history pertinent for appendectomy and hysterectomy. On exam, patient does appear dry and fatigued but otherwise nontoxic. Normal cardiac and pulmonary exam. No lower extremity edema or calf tenderness. 2+ distal pulses all of her extremities. Abdomen is benign and nontender. No CVA tenderness. EMS gave her Zofran and route, patient is currently asymptomatic. Will obtain baseline labs, hydrate the patient and continue to monitor. I do not see need for imaging at this time as the patient is nontender. I did note that she does have a family history of aortic aneurysm but I did review the report from her most recent imaging which was completed earlier in the year and there is no dilation of the aorta appreciated. She is not having any pain or pulse deficits, no clinical indication at this time for this being the cause of her symptoms. Will obtain an EKG, more for possible electrolyte abnormalities rather than ACS as patient does not have any exertional symptoms or chest pain. Feeling improved but still fatigued. Asking for PO hydration. Labs reviewed, apear stable, will atempt PO hydration. Patient tolerating p.o. fluids well. She was able to ambulate to the bathroom. She is requesting discharge at this time which I feel like is appropriate. She continues to appear very fatigued and endorsed this. However, she would like to be able to rest at home. Will send her home with some Zofran so she does not except the pharmacy on the way home should she have any recurrence of her nausea or vomiting. Will send a further prescription to the pharmacy. I did discuss the use of Imodium a bit as this is likely an infectious process or something that she ate her further exposure such as fish neurovirus, I am hesitant to have the patient use this and prevent any expulsion of an infectious pathogen. Will hold off at this time. Patient I also discussed inpatient versus outpatient management. While she is overall appearing well and hemodynamically stable with reassuring labs, she appears very fatigued. However, she feels that she has good support at home and is ambulatory and will do well. She has that she is just fatigued from being awake all night in the going home to get some rest will be of benefit. She does have family in the room who agree with this plan. Just prior to patient being discharged, she did bump a temp to 39 ?C. She continues to express want to go home. Is agreeable to IV acetaminophen and reevaluation. After period of waiting, patient's temp is downtrending and she is feeling improved, feels again ready to be discharged. This is likely associate with norovirus which we have been seeing more predominantly locally. I again discussed with her inpatient versus outpatient continued care. Her biggest concern right now is fatigue and potentially becoming dehydrated again the patient seems to have good support and would like to be able to go home which I feel is appropriate given her support systems. She is going home with her small course of Zofran, rest has been sent to the pharmacy. Continued supportive care was discussed. Advise likely viral etiology versus infection from food. She appears greatly improved, is much more engaged and interactive. She follow-up closely with primary care. Strict return precautions were discussed. All the questions and concerns were addressed and she is in agreement this plan. Dictation completed using [employer] dictation software. Please excuse any errors or paper inspector anomalies that may remain. PFSH All Active Problems (Updated 09/20/25 @ 13:00 by DENA Iglesias) Nausea vomiting and diarrhea (Acute) Severe persistent asthma (Acute) Fatigue (Acute) Lymph node symptom (Acute) Elevated cholesterol (Chronic) Glaucoma (Chronic) Choking sensation (Acute) Breast cancer screening by mammogram (Acute) Depression (Chronic) Degeneration of thoracic intervertebral disc (Acute) Cyst of right kidney (Acute) septae thicker per 09/25/24 US (addendum) Atypical back pain (Acute) Band of pain, seemingly diaphragmatic? rib anomaly? restricted ribcage excursion? Rib cage dysfunction (Acute) Possible 11,12th rib dysfunction Liver nodule (Acute) per CT, Oct 2023 Pre-diabetes (Acute) Lung nodules (Acute) per Oct 2023 CT .. FU in 6 mos Diaphragm dysfunction (Acute) POSSIBLE DX OF SUB-STERNAL PAIN/ATYPICAL CHEST PAIN (SEVERE/SHORT-LIVED, BUT SUDDEN AND AFFECTING ADLs) Peripheral neuropathy (Acute) Osteoporosis (Chronic) per 11/2023 DEXA! Notable worsening! Also, algae Charles Plus along with Strontium Boost at $89 per mo look good. If that is rec. Perhaps my ins would pay for it?? Anticipatory anxiety (Acute) incl flights, dentist Family history of benign essential tremor (Acute) Essential tremor (Acute) Notably more apparent, AND now with writing! 11/14/23, [place] Skin lesion (Acute) Squamous cell carcinoma, leg (Acute) Xiphoidalgia syndrome (Acute) Thoracic spondylosis without myelopathy (Acute) Spondylosis without myelopathy or radiculopathy, lumbar region (Acute ~10/22/22) Compression fracture of T11 vertebra (Acute 07/27/22) MRI [facility] Lordosis of lumbar region (Acute 07/27/22) MRI [facility] Scoliosis of lumbar spine (Acute 07/27/22) MRI [facility] Neural foraminal stenosis of lumbar spine (Acute 07/27/22) MRI [facility] Thoracic kyphosis (Acute 07/27/22) MRI [facility] Muscle pain (Acute) Anxiety (Chronic) Asthma (Chronic) Bronchitis (Acute) Smoking hx (Acute) Cough (Acute) lingering x months .. ok for codeine syrup prn Scoliosis (Acute) Ventricular premature beats (Acute) EKG/[place] WNL per reports, d/w pt 07/11/23, [place] Numbness of foot (Acute) Migraine (Chronic) GERD (gastroesophageal reflux disease) (Chronic) Medical History At high risk for osteoporosis Ht loss; 2021 DXA shows hip worsening (although lumbar improved) Abdominal hernia NOT a hernnia -- possible xiphoid? diaph/rib inflammation? Osteopenia Osteoporosis! per 11/2023 DEXA... per thoracic XR, March 2022 Hernia of abdominal cavity NOT a hernia per surgery History of recent hospitalization ED visit - r/o cardiac dz Family history of thoracic aortic aneurysm Diverticulosis of colon (~08/10/20) Diagnosed post screening colonoscopy, [facility] w/Dr Jerson SPRINGER (~11/2022) Basal cell carcinoma (BCC) (~2001) Low back pain Chronic, with exacerbation post fall due to horse (March 2022). 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 Surgical History Hx of tonsillectomy History of laryngoscopy H/O arthroscopic knee surgery History of appendectomy History of delivery (10/14/83) History of hysterectomy (10/14/07) Family History Son Asthma Maternal Grandmother Diabetes Father Stroke Mother Thoracic aneurysm, ruptured Social History Smoking/Tobacco Use Status: Former Tobacco Use tobacco type: cigarettes Tobacco: How many years used: 10 Quit status: quit date established Smoking risk assessment performed?: Yes Alcohol Intake: current Alcohol Intake frequency: 0-2 drinks per day Drug use: Occasionally Substance use type: marijuana Adopted: No Caregiver/Support person: No Foster care: No Household members: spouse Housing: house Number of Children: 2 number of grandchildren: 2 Communication Needs: None Education Level: college Details: bachelor's degree Do you need help understanding health information?: Rarely current occupation: Retired [employer] Coordinator Pets and animals: Yes Pets and animals: horse(s) and other Details: mini donkeys Sexually active: Yes Do you think of yourself as: straight/heterosexual Current gender identity: female What is your relationship status?: How often do you talk on the phone with friends or family?: once per week How often do you get together with friends or relatives?: once per week Do you belong to any clubs or organized social groups?: yes Panel score (0-1 are the most socially isolated patients): 2 Leilani/Buddhism: Sikhism Special leilani needs: No Seatbelt use: always Helmet use: Yes Helmet use: always Drive intox or ride w/intox stacker driver: No Do you feel safe at home: Yes Do you feel safe in your relationship?: Yes
[2025-09-20 10:24] LABS: Abs Immature Grans 0.02 10^3/uL (0.0-0.06); HCT 40.9 % (36.0-46.0); HGB 14.0 g/dL (11.2-15.7); Immature Grans % 0.2 %; MCH 31.6 pg (27.0-33.0); MCHC 34.2 % (32.0-36.0); MCV 92 fL (80-95); MPV 8.6 fL (8.0-11.0); Platelet Count 238 10^3/uL (130-400); RBC 4.43 10^6/uL (3.93-5.22); RDW 13.1 % (11.7-14.6); RDW-SD 44.3 fL; WBC 9.00 10^3/uL (4.4-10.8)
[2025-09-20 10:43] LABS: Lipase 23 U/L (<53)
[2025-09-20 10:44] LABS: Magnesium 1.7 mg/dL (1.6-2.6)
[2025-09-20 10:45] LABS: Troponin I 7 ng/L (<35)
[2025-09-20 10:46] LABS: ALT 46 U/L (10-49); AST 48 U/L (<34); Albumin 3.8 g/dL (3.2-5.0); Alkaline Phosphatase 53 U/L (46-116); Anion Gap 9.8 mmol/L (3-11); BUN 18 mg/dL (9-23); Bilirubin, Total 1.00 mg/dL (0.2-1.2); CO2 27.2 mmol/L (20.0-31.0); Calcium 8.5 mg/dL (8.3-10.6); Chloride 107 mmol/L (98-107); Glucose 127 mg/dL (74-106); Potassium 3.4 mmol/L (3.5-5.1); Sodium 144 mmol/L (136-145); Total Protein 6.5 g/dL (5.7-8.2)
[2025-09-20] MEDS: Lactated Ringers 1,000 ML 1000 ML IV (11:06)
[2025-09-20 11:47] LABS: Troponin I 8 ng/L (<35)
[2025-09-20 12:38] LABS: Glucose Negative (Negative)
[2025-09-20 12:49] LABS: C & S Indicated? No; WBC 0-2 HPF (0-5)
[2025-09-20] MEDS: Ondansetron O.D.T. 4 MG TABEF, 3 TABS/BTL PO (13:15)
[2025-09-20] MEDS: ACETAMINOPHEN 1,000 MG/100 ML BAG 400 MG (13:28)
[2025-09-20] MEDS: Levalbuterol HFA 15 GM INH 2 PUFF IH (14:24)
== END 2025-09-20 17:38 | disposition home or self-care (01) ==
PROVIDERS: Emergency Provider Physician Assistant; PCP Nurse Practitioner Family
DX: R11.2 Nausea with vomiting, unspecified (principal); R19.7 Diarrhea, unspecified
CPT/HCPCS: 99283; 99284; 80053; 83690; 93005; 96360; 96361; 81003; 81015; 83735; 84484; 85025; 93010; J0131

== ENCOUNTER → 2025-10-11 10:17 | Outpatient (BNVA) | payer MEDICARE, SELFPAY | PROVIDERS: PCP Nurse Practitioner Family; Referring Provider Nurse Practitioner Family; Visit Provider Internal Medicine Pulmonary Disease | DX: J45.50 Severe persistent asthma, uncomplicated (principal); R91.8 Other nonspecific abnormal finding of lung field; R05.9 Cough, unspecified; Z87.891 Personal history of nicotine dependence; K21.9 Gastro-esophageal reflux disease without esophagitis | CPT/HCPCS: 99214 ==